=== PATIENT | female | born 1960 | race Two or more races ===

== ENCOUNTER 2022-05-12 18:07 | Emergency (ER) | payer BC, OTHER ==
[~2022-05-12] VITALS: Ht 170.2 cm; Wt 82.0 kg
[2022-05-12 19:13] VITALS: BP 161/98
== END 2022-05-12 20:15 | disposition left against medical advice (07) ==
LOC: ER 18:07 → EDBD 18:07 → ER 20:15
DX: M79.10 Myalgia, unspecified site (principal); Z53.21 Procedure and treatment not carried out due to patient leaving prior to being seen by health care provider